=== PATIENT | female | born 1935 | race Asian ===

== ENCOUNTER 2017-12-05 07:00 | Emergency (ER) | payer MEDICARE, BC ==
[~2017-12-05] VITALS: Ht 157.5 cm; Wt 54.4 kg
[2017-12-05 07:30] VITALS: BP 136/78
[2017-12-05 07:50] LABS: HEMATOCRIT 45.4 % (37.0-47.0); HEMOGLOBIN 15.3 G/DL (12.0-16.0); MEAN CORPUSCULAR VOLUME 94 FL (80-99); PLATELET COUNT 147 K/UL (150-450); RED BLOOD COUNT 4.82 M/UL (4.20-5.40); RED CELL DISTRIBUTION WIDTH 12.1 % (11.6-14.8); WHITE BLOOD COUNT 11.8 K/UL (4.8-10.8)
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
[2017-12-05 07:59] LABS: ANION GAP 9 mmol/L (5-15); BLOOD UREA NITROGEN 21 mg/dL (7-18); CALCIUM 9.2 MG/DL (8.5-10.1); CARBON DIOXIDE 28 MMOL/L (21-32); CHLORIDE 102 MMOL/L (98-107); CREATININE 0.8 MG/DL (0.55-1.30); POTASSIUM 4.2 MMOL/L (3.5-5.1); SODIUM 139 MMOL/L (136-145)
[2017-12-05] MEDS ORDERED: KLONOPIN0.5 MG ORAL (08:00)
[2017-12-05] MEDS ORDERED: ATENOLOL25 MG ORAL (08:00)
--- NOTE | 2017-12-05 08:15 | Diagnostic Imaging Report ---
EXAM: CT Head Without Intravenous Contrast CLINICAL HISTORY: 82-year-old female with AMS. TECHNIQUE: Axial computed tomography images of the head/brain without intravenous contrast. CTDI is 70.53 mGy and DLP is 1347 mGy-cm. One or more of the following dose reduction techniques were used: automated exposure control, adjustment of the mA and/or kV according to patient size, use of iterative reconstruction technique. Coronal reformatted images were created and reviewed. COMPARISON: None. FINDINGS: Brain: Heterogeneous, acute on subacute/chronic left supratentorial subdural hematoma, predominantly in the inferior and lateral temporal and especially frontal lobe regions, measuring up to 2.2 cm in greatest thickness, with moderate to marked associated mass effect. Borderline left uncal herniation. Small to moderate amount of acute subarachnoid hemorrhage within the left sylvian fissure. Midline shift: Subfalcine midline shift to the right of up to 14 mm. Small curvilinear hyperdense/possibly calcified vessel within central right cerebellar white matter, without surrounding edema or obvious mass. Ventricles: Moderate mass effect upon/compression of the third and left lateral ventricles. Bones/joints: Unremarkable. Soft tissues: Unremarkable. Sinuses: Unremarkable as visualized. Mastoid air cells: Unremarkable as visualized. IMPRESSION: Acute on subacute/chronic left supratentorial subdural hematoma, measuring up to 2.2 cm in thickness, with significant associated mass effect, including subfalcine midline shift to the right up to 1.4 cm and borderline left uncal herniation; small to moderate amount of acute subarachnoid hemorrhage in the left sylvian fissure as well. Critical Value Communications 12/05/17 08:09 Call Doctor Regarding Intracranial Hemorrhage, called Arsh Hair MD on 12/05 08:09 (-07:00)
[2017-12-05 08:22] LABS: ALANINE AMINOTRANSFERASE 31 U/L (12-78); ALBUMIN 4.5 G/DL (3.4-5.0); ALBUMIN/GLOBULIN RATIO 1.2 (1.0-2.7); ALKALINE PHOSPHATASE 56 U/L (46-116); ASPARTATE AMINO TRANSFERASE 46 U/L (15-37); BILIRUBIN,TOTAL 0.9 MG/DL (0.2-1.0); CKMB 3.5 NG/ML (0.0-3.6); CREATINE KINASE 309 U/L (26-308)
[2017-12-05] MEDS ORDERED: ASPIR 8181 MG ORAL (08:23)
[2017-12-05 08:39] VITALS: BP 145/77
[2017-12-05 08:39] LABS: INR 1.1 (0.9-1.1)
--- NOTE | 2017-12-05 08:58 | Diagnostic Imaging Report ---
PORTABLE AP CXR: HISTORY: 82-year-old female with syncope. COMPARISON: None. FINDINGS: The lungs are grossly clear. Heart size is within normal limits. The thoracic aorta is mildly tortuous and calcified. No obvious pneumothorax or effusion. No obvious acute osseous abnormality. IMPRESSION: No acute abnormality identified.
[2017-12-05 08:59] VITALS: BP 145/77
--- NOTE | 2017-12-06 12:32 | Cardiology Report ---
APPROVED REPORT EKG Measurement Heart [id number] DC [id number] Normal sinus rhythm Possible Left atrial enlargement Borderline ECG
== END 2017-12-05 09:00 | disposition short-term general hospital (02) ==
LOC: EDBD 07:00 → EMR 07:15
DX: S06.5X9A Traumatic subdural hemorrhage with loss of consciousness of unspecified duration, initial encounter (principal); I10 Essential (primary) hypertension; S00.81XA Abrasion of other part of head, initial encounter; S70.211A Abrasion, right hip, initial encounter
CPT/HCPCS: 36415; 70450; 71045; 80053; 82550; 82553; 83690; 84484; 85007; 85025; 85610; 85730; 93005; 99291